=== PATIENT | female | born 1955 | race Caucasian/White ===

== ENCOUNTER → 2021-12-27 | Outpatient (CLI) | payer MEDICARE ==
--- NOTE | 2021-12-27 11:38 | BD ---
EXAMINATION TYPE: Axial Bone Density DATE OF EXAM: 12/27/2021 COMPARISON: NONE CLINICAL HISTORY: 66 years year old Female. ICD-10 CODE: M85.89 DISORDER OF BONE DENSITY Height: 4'10 Weight: 222 FRAX RISK QUESTIONS: History of Fracture in Adulthood: y Secondary Osteoporosis: 3. Menopause before 45: y RISK FACTORS HISTORY OF: Family History of Osteoporosis: y Active: y Postmenopausal woman: y MEDICATIONS: Thyroid Medications: Which medication: Synthroid How Lon years Additional Medications: asthma inhaler, rescue and preventive, pain Additional History: EXAM MEASUREMENTS: Bone mineral densitometry was performed using the [employer]. Bone mineral density as measured about the Lumbar spine is: ----- L1-L4(G/cm2): 1.066 T Score Values are as follows: ----- L1: -0.2 ----- L2: -1.1 ----- L3: -1.1 ----- L4: -1.5 ----- L1-L4: -0.9 Bone mineral density about the R hip (g/cm2): 0.694 Bone mineral density about the L hip (g/cm2): 0.745 T Score values are as follows: -----R Neck: -2.5 -----L Neck: -2.1 -----R Total: -2.1 -----L Total: -1.7 FRAX%s: The graph provided illustrates a 11.2% chance for a major osteoporotic fx and a 2.2% chance f or the hips probability for fx in 10 years time. IMPRESSION: Osteopenia (T Score between -2.5 and -1). There is slightly increased risk of fracture and the patient may be considered for treatment. Re-Screen 2-5 years. NOTE: T-SCORE=SD OF THE YOUNG ADULT MEAN.
--- NOTE | 2021-12-31 08:11 | MM ---
Reason for Exam: Screening (asymptomatic). Last mammogram was performed 19 year(s) and 3 month(s) ago. Patient History: Menarche at age 10. Right ovary removed at age 31. Hysterectomy at age 29. Postmenopausal. Risk Values: Laney 5 year model risk: 1.3%. NCI Lifetime model risk: 4.8%. Prior Study Comparison: 03/06/2001 Bilateral Screening Mammogram, [facility]. 09/26/2002 Bilateral Diagnostic Mammogram, [facility]. 10/12/2002 Bilateral Special View Mammogram, [facility]. Tissue Density: The breast tissue is heterogeneously dense. This may lower the sensitivity of mammography. Findings: Analyzed By CAD. There is no suspicious group of microcalcifications or new suspicious mass in either breast. Overall Assessment: Negative, BI-RAD 1 Management: Screening Mammogram of both breasts in 1 year. A clinical breast exam by your physician is recommended on an annual basis and results should be correlated with mammographic findings. Electronically signed and approved by: Jamal Sanders M.D. Radiologis
== END | disposition home or self-care (01) ==
LOC: RADMAMWWP 07:52
PROVIDERS: ATTEND Family Medicine
DX: Z12.31 Encounter for screening mammogram for malignant neoplasm of breast (principal); M81.0 Age-related osteoporosis without current pathological fracture
CPT/HCPCS: 77063; 77067; 77080

== ENCOUNTER → 2023-05-07 | Outpatient (CLI) | payer MEDICARE ==
--- NOTE | 2023-05-08 09:35 | MM ---
Reason for Exam: Screening (asymptomatic). Last mammogram was performed 1 year(s) and 4 month(s) ago. Patient History: Menarche at age 10. Right ovary removed at age 31. Hysterectomy at age 29. Postmenopausal. 2000, MG pre op needle loc RT on the Right side. Risk Values: Laney 5 year model risk: 1.6%. NCI Lifetime model risk: 5.4%. Prior Study Comparison: 09/26/2002 Bilateral Diagnostic Mammogram, [facility]. 10/12/2002 Bilateral Special View Mammogram, [facility]. 12/27/2021 Bilateral MG 3D screening mammo w/cad, [facility]. Tissue Density: The breast tissue is almost entirely fat. Findings: Analyzed By CAD. There is no suspicious group of microcalcifications or new suspicious mass. Overall Assessment: Negative, BI-RAD 1 Management: Screening Mammogram of both breasts in [address] [facility] will attempt to contact patient to return for supplemental views and ultrasound if indicated. Patient should continue monthly self-breast exams. A clinical breast exam by your physician is recommended on an annual basis. This exam should not preclude additional follow-up of suspicious palpable abnormalities. Note on Laney scores and lifetime risk: 1. A Laney score greater than 3% is considered moderate risk. If this is the case, consider specialist referral to assess eligibility for a risk reducing agent. 2. If overall lifetime risk for the development of breast cancer is 20% or higher, the patient may qualify for future screening with alternating mammogram and breast MRI. Electronically signed and approved by: Frank Menezes DO
== END | disposition home or self-care (01) ==
LOC: RADMAMWWP 09:53
PROVIDERS: ATTEND Obstetrics & Gynecology
DX: Z12.31 Encounter for screening mammogram for malignant neoplasm of breast (principal); Z78.0 Asymptomatic menopausal state
CPT/HCPCS: 77063; 77067

== ENCOUNTER → 2023-10-09 | Outpatient (CLI) | payer MEDICARE ==
--- NOTE | 2023-10-09 11:26 | XR ---
EXAMINATION TYPE: XR knee complete bilateral DATE OF EXAM: 10/09/2023 10:56 AM CLINICAL INDICATION:Female, 67 years old with history of [id number] WONG KNEE PAIN; [facility] COMPARISON: None. TECHNIQUE: XR knee complete bilateral; examined in Frontal, lateral and oblique projections. FINDINGS: No evidence of any acute osseous pathology, soft tissue swelling, or joint effusion is no андрей. Tricompartmental osteophyte formation involving the femoral condyles, tibial plateau and patella . Severe joint space narrowing most pronounced in the medial aspect of both knees. IMPRESSION: 1. No acute osseous pathology. 2. Severe lateral tricompartmental osteoarthritic changes.
== END | disposition home or self-care (01) ==
LOC: RADXRYALE 10:14
PROVIDERS: ATTEND Physician Assistant Medical
DX: M17.0 Bilateral primary osteoarthritis of knee (principal)

== ENCOUNTER → 2023-12-03 | Outpatient (CLI) | payer MEDICARE ==
--- NOTE | 2023-12-03 21:40 | US ---
EXAMINATION TYPE: US kidneys/renal and bladder DATE OF EXAM: 12/03/2023 COMPARISON: NONE CLINICAL INDICATION: Female, 67 years old with history of R31.9 HEMATURIA, UNSPECIFIED; Hematuria, ri ght flank pain EXAM MEASUREMENTS: Right Kidney: 10.8 x 5.0 x 4.6 cm Left Kidney: 10.5 x 4.9 x 5.0 cm *Limitations due to overlying bowel gas Right Kidney: no evidence of hydronephrosis Left Kidney: no evidence of hydronephrosis Bladder: appears wnl Bilateral Jets seen: no Urinary bladder is sonolucent. Posterior wall is normal. IMPRESSION: Unremarkable renal ultrasound
== END | disposition home or self-care (01) ==
LOC: RADUSWWP 15:19
PROVIDERS: ATTEND Family Medicine
DX: R31.9 Hematuria, unspecified (principal); R10.30 Lower abdominal pain, unspecified
CPT/HCPCS: 76770